=== PATIENT | female | born 1995 | race Caucasian/White ===

== ENCOUNTER 2018-03-02 17:38 | Emergency (ER) | payer BC, SELFPAY ==
[2018-03-02 17:41] VITALS: BP 137/83; PULSE 111; RESP 16; TEMP 37.3; O2SAT 98; BMI 13.4
[2018-03-02] MEDS: Ondansetron ODT 4 MG Tablet PO (18:11)
[2018-03-02] MEDS: oxyCODONE 5 MG Tablet 10 MG PO (18:11)
--- NOTE | 2018-03-02 18:15 | RAD_ITS ---
STUDY: X-RAY - LEFT RADIUS AND ULNA REASON FOR EXAM: Female, 22 years old. Laceration. TECHNIQUE: 2 view(s) of the forearm. COMPARISON: None. FINDINGS: There is a large anteromedial soft tissue laceration at the mid to distal third of the left forearm. No radiopaque foreign body is demonstrated. Normal visualized radius. Normal visualized ulna. There is no demonstrated acute fracture. RAD/Forearm 2 Views IMPRESSION: Large anteromedial soft tissue laceration at the mid to distal forearm. No acute fracture of the left radius and ulna. No radiopaque foreign body seen. Electronically Signed: Enzo Colindres MD at 19:16 EDT , Service support ,
--- NOTE | 2018-03-02 18:15 | RAD_ITS ---
STUDY: X-RAY - RIGHT HAND REASON FOR EXAM: Female, 22 years old. Right hand injury when arm went through window, multiple glass lacerations. TECHNIQUE: 3 view(s) of the hand. COMPARISON: None. FINDINGS: Normal radiocarpal articulation. Normal distal radioulnar joint. Normal visualized carpal bones. Normal carpal articulations Normal carpometacarpal articulation of the thumb. Normal second through fifth carpometacarpal joints. Normal metacarpi. Normal metacarpophalangeal joint of the thumb. Normal interphalangeal joint of the thumb. Normal proximal and distal phalanges of the thumb. Normal metacarpophalangeal joints of the second through fifth fingers. Normal proximal and distal interphalangeal joints of the second through fifth fingers. Normal phalanges of the second through fifth fingers. The soft tissue structures are unremarkable. There is no demonstrated radiopaque foreign body other than particulate debris along the dorsomedial cutaneous margin of the distal right forearm. There is no demonstrated fracture. RAD/Hand Min 3 Views IMPRESSION: No acute fracture of the right hand. Electronically Signed: Enzo Colindres MD at 19:19 EDT , Service support ,
[2018-03-02] MEDS: Diphth,Pertuss(Acell),Tet Vac 0.5 ML Vial IM (18:31)
[2018-03-02 19:13] VITALS: RESP 24
--- NOTE | 2018-03-02 19:43 | ED.VISSUMM ---
- ER Visit Summary Date of Service: 03/02/18 Chief Complaint: Bilateral forearm lacerations History of Present Illness: The patient is a 22 F who presents with bilateral forearm lacerations. She was trying to open a window that swung open but the frame had been pain and shot. She was pushing on the glass broke. She sustained multiple lacerations to both arms. She currently can planes of sharp pain at 8 out of 10. She denies paresthesias weakness or loss of function. She states she is tingling at the site of the cut but has no tingling or weakness of the hand Physical Examination: Heart rate 111 vitals otherwise unremarkable Heart regular rate and rhythm Lungs clear Abdomen soft 10 cm left forearm laceration crescent-shaped laceration there appear to be multiple tendon lacerations. I am unable to identify clearly which tendencies are She has normal sensation to light touch in the median ulnar and radial nerve distributions she has normal opposition of the digits she is able to make a fist she was unable to easily flex her wrist because of the pain that this caused in the forearm There is a 3-1/2 cm V-shaped laceration on the right forearm which is superficial and the extent of the wound is easily visualized There is a 1 cm medial laceration over the ulnar side of the right hand at the base of the fifth finger Test Results: X-rays of the forearm and hand show no foreign body Emergency Department Course and Treatment: All of the lacerations were anesthetized with 1% lidocaine with epinephrine. 9 cc was used for the left forearm laceration, a total of 4 cc was used for the right arm lacerations. The left forearm laceration was explored and appeared to have tendon lacerations as above. The V-shaped laceration of the right forearm was closed with a total of 6 simple interrupted 4-0 nonabsorbable sutures. Two 4-0 absorbable sutures were placed in the right hand. This was tolerated well. Given the tendon lacerations I spoke to Dr. Mcnamara, our orthopedic surgeon manager international who recommended transfer for orthopedic hand evaluation. I spoke to Dr. England with [facility] after the patient for transfer and evaluation. Patient was given a tetanus immunization and Ancef. Treatment Plan: [] Disposition: Transfer Impression: 1 7 m right hand laceration 3-1/2 cm right forearm laceration 10 cm left forearm laceration with tendon laceration This note was generated with Dragon dictation software. It may contain incorrect words, spelling, and punctuation that were not noted in review of the chart prior to signing ED Disposition - Plan for ED Patient: Chief Complaint: Trauma Referrals: NOT,DEFINED [Primary Care Provider] -
--- NOTE | 2018-03-02 19:47 | ED.DCSUM_ITS ---
- ER Visit Summary Date of Service: 03/02/18 Chief Complaint: Bilateral forearm lacerations History of Present Illness: The patient is a 22 F who presents with bilateral forearm lacerations. She was trying to open a window that swung open but the frame had been pain and shot. She was pushing on the glass broke. She sustained multiple lacerations to both arms. She currently can planes of sharp pain at 8 out of 10. She denies paresthesias weakness or loss of function. She states she is tingling at the site of the cut but has no tingling or weakness of the hand Physical Examination: Heart rate 111 vitals otherwise unremarkable Heart regular rate and rhythm Lungs clear Abdomen soft 10 cm left forearm laceration crescent-shaped laceration there appear to be multiple tendon lacerations. I am unable to identify clearly which tendencies are She has normal sensation to light touch in the median ulnar and radial nerve distributions she has normal opposition of the digits she is able to make a fist she was unable to easily flex her wrist because of the pain that this caused in the forearm There is a 3-1/2 cm V-shaped laceration on the right forearm which is superficial and the extent of the wound is easily visualized There is a 1 cm medial laceration over the ulnar side of the right hand at the base of the fifth finger Test Results: X-rays of the forearm and hand show no foreign body Emergency Department Course and Treatment: All of the lacerations were anesthetized with 1% lidocaine with epinephrine. 9 cc was used for the left forearm laceration, a total of 4 cc was used for the right arm lacerations. The left forearm laceration was explored and appeared to have tendon lacerations as above. The V-shaped laceration of the right forearm was closed with a total of 6 simple interrupted 4-0 nonabsorbable sutures. Two 4-0 absorbable sutures were placed in the right hand. This was tolerated well. Given the tendon lacerations I spoke to Dr. Mcnamara, our orthopedic surgeon sql application developer who recommended transfer for orthopedic hand evaluation. I spoke to Dr. England with [facility] after the patient for transfer and evaluation. Patient was given a tetanus immunization and Ancef. Treatment Plan: [] Disposition: Transfer Impression: 1 7 m right hand laceration 3-1/2 cm right forearm laceration 10 cm left forearm laceration with tendon laceration This note was generated with Dragon dictation software. It may contain incorrect words, spelling, and punctuation that were not noted in review of the chart prior to signing ED Disposition - Plan for ED Patient: Chief Complaint: Trauma Referrals: NOT,DEFINED [Primary Care Provider] -
[2018-03-02 19:52] VITALS: BP 135/96; PULSE 100; RESP 15; O2SAT 98
--- NOTE | 2018-03-02 19:56 | ED.RN ---
PT LEFT ARM WITH 6.0 CM LACERATION. 3.0 CM WIDE AND FULL THICKNESS, TENDONS VISIBLE. [facility]PS INTACT. PULSE PRESENT. PT REPORTS TINGLING IN LEFT FORE ARM. UNABLE TO BE SUTURED PER DR. COSBY. PT ARM WRAPPED WITH GAUZE AND KERLEX.
[2018-03-02 20:31] VITALS: BP 135/96; PULSE 100; RESP 14; TEMP 36.7; O2SAT 100
== END 2018-03-02 20:39 | disposition short-term general hospital (02) ==
PROVIDERS: Emergency Provider Emergency Medicine
DX: S56.922A Laceration of unspecified muscles, fascia and tendons at forearm level, left arm, initial encounter (principal); S51.812A Laceration without foreign body of left forearm, initial encounter; S51.811A Laceration without foreign body of right forearm, initial encounter; S61.411A Laceration without foreign body of right hand, initial encounter; W25.XXXA Contact with sharp glass, initial encounter; Y93.89 Activity, other specified; Y92.9 Unspecified place or not applicable
CPT/HCPCS: 12005; 73090; 73130; 90715; 96372; 99285; J7030; A4216